=== PATIENT | female | born 1955 | race Caucasian/White ===

== ENCOUNTER 2020-01-27 20:13 | Emergency (ER) | payer OTHER ==
[2020-01-27] MEDS ORDERED: DIPHTH,PERTUSS(ACELL),TET 0.5 ML DISP.SYRIN IM ONE ×2 (20:32→20:34)
[2020-01-27 20:40] VITALS: TEMP 98.8; BMI 29.8
--- NOTE | 2020-01-27 21:12 | PDOC ---
Documentation entered by Noemy Lopez SCRIBE, acting as scribe for Warren Elizondo MD. Warren Elizondo MD: This documentation has been prepared by the charlesibe, Noemy Lopez SCRIBE, under my direction and personally reviewed by me in its entirety. I confirm that the documentation accurately reflects all work, treatment, procedures, and medical decision making performed by me. History of Present Illness - General Chief Complaint: Injury Stated Complaint: fall, left foot injury, right knee injury Time Seen by Provider: 01/27/20 20:27 History Source: Patient Exam Limitations: No Limitations - History of Present Illness Initial Comments: 01/27/20 20:47 The patient is a 65-year-old female with a past medical history significant for HTN and s/p L. hip replacement who presents to the emergency department s/p a fall. The patient reports she was on a ladder when she went to put the foot onto the kitchen top when the top flipped over causing the fall. The patient reports she landed on her left side, reports pain to her left hip, knee, foot, and 4th toe and right knee. The patient denies head injury or LOC. The patient reports she is able to ambulate and weight bear, with pain. The patient isnt sure when her last tetanus was. Review of system: General: No fevers or chills, no weakness, no weight loss HEENT: No change in vision. No sore throat,. No ear pain CardioVascular: No chest pain or shortness of breath Respiratory:No cough, or wheezing. Gastrointestinal: no nausea, vomiting, diarrhea or constipation. Genitourinary: No dysuria, hematuria, or frequency Musculoskeletal: +left hip pain, right knee pain. left foot pain. left 4th toe pain. No other joint or muscle pain or swelling Neurologic: No headache, vertigo, dizziness or loss of consciousness Psychiatric: nor depression Skin: No rashes or easy bruising Endocrine: no increased thirst or abnormal weight change Allergic: no skin or latex allergy All other systems reviewed and normal Physical exam: GENERAL: The patient is awake, alert, and fully oriented, in no acute distress. HEAD: Normal with no signs of trauma. EYES: Pupils equal, round and reactive to light, extraocular movements intact, sclera anicteric, conjunctiva clear. EXTREMITIES: Right knee: tenderness to palpation of the patella, mild swelling, abrasion to anterior patella. No ligamentous instability, neurovascularly distally intact Left hip: no bony tenderness, some soft tissue tenderness of the buttocks. Left foot/toes: There is mild bruising and tenderness to the dorsum of the foot and the base of the 4th toe. Neurovascularly intact. NEUROLOGICAL: Normal speech, normal gait. PSYCH: Normal mood, normal affect. SKIN: Warm, Dry, normal turgor, no rashes or lesions noted. 01/27/20 21:10 Assessment and plan: This is a 65-year-old female who injured her right knee left hip and right foot when she fell off of a ladder. Patient had x-rays that were done and read by me. Patient's right knee x-ray was negative for any acute pathology Patient's left foot was negative for any acute pathology Patient's left toes showed a fracture of the proximal phalanx of the fourth toe The fracture toe was rehana taped to the toe next to it patient has an open toed shoe and was discharged home told to take Tylenol or Motrin Past History - Medical History Allergies/Adverse Reactions: Allergies Allergy/AdvReac Type Severity Reaction Status Date / Time No Known Allergies Allergy Unverified 08/13/13 08:30 Home Medications: Ambulatory Orders Atenolol [Tenormin -] 50 mg PO DAILY 08/13/13 COPD: No HTN: Yes - Immunization History Immunization Up to Date: No - Psycho-Social/Smoking History Smoking History: Never smoked - Substance Abuse Hx (Audit-C & DAST Scrn) How often the patient has a drink containing alcohol: Monthly or less Number of drinks the patient has on a typical day: 1 or 2 How often the patient has six or more drinks on one occasion: Never Score: In Men: 4 or > Positive; In Women: 3 or > Positive: 1 Screen Result (Pos requires Nsg. Audit-10AR): Negative In the last yr the pt used illegal drug/Rx for NonMed reason: No Score: Yes response is considered Positive: 0 Screen Result (Positive result requires Nsg. DAST-10): Negative *Physical Exam - Vital Signs Last Vital Signs Temp Pulse Resp BP Pulse Ox 98.8 F 122 H 20 167/98 97 01/27/20 20:14 01/27/20 20:14 01/27/20 20:14 01/27/20 20:14 01/27/20 20:14 ED Treatment Course - Medications Given in the ED: ED Medications Discontinued Medications Generic Name Dose Route Start Last Admin Trade Name Elio PRN Reason Stop Dose Admin Diphtheria/Tetanus/Acell Pertussis 0.5 ml 01/27/20 20:32 01/27/20 20:38 Boostrix - IM 01/27/20 20:33 0.5 ml ONCE ONE Administration Discharge - Discharge Information Problems reviewed: Yes Clinical Impression/Diagnosis: Contusion of right knee Qualifiers: Encounter type: initial encounter Qualified Code(s): S80.01XA - Contusion of right knee, initial encounter Contusion of left foot Qualifiers: Encounter type: initial encounter Qualified Code(s): S90.32XA - Contusion of left foot, initial encounter Toe fracture, left Qualifiers: Encounter type: initial encounter Toe: unspecified toe Fracture type: closed Fracture alignment: displaced Qualified Code(s): S92.912A - Unspecified fracture of left toe(s), initial encounter for closed fracture Disposition: HOME - Admission No - Follow up/Referral - Patient Discharge Instructions Additional Instructions: Tylenol or Motrin as needed for the pain. Rehana tape your toe to the toe next to it for additional comfort. Wear open toed shoes. Return to the emergency department immediately with ANY new, persistent or worsening symptoms. Continue any medications as previously prescribed by your physician. You should follow up with your primary doctor as soon as possible regarding today's emergency department visit. . Please make sure your doctor reviews the results of your emergency evaluation. Thank you for coming to the Emergency Department today for your care. It was a pleasure to see you today. Please note that your evaluation is INCOMPLETE until you follow-up with your doctor. - Post Discharge Activity
[2020-01-27 21:18] VITALS: BP 153/94; PULSE 105
== END 2020-01-27 21:18 | disposition home or self-care (01) ==
LOC: FER 20:13 → SUPCPDRO 20:13 → FER 21:18
PROC: 3E0234Z Introduction of Serum, Toxoid and Vaccine into Muscle, Percutaneous Approach (ICD-10-PCS; principal; 2020-01-27)
DX: S80.01XA Contusion of right knee, initial encounter (principal); S90.32XA Contusion of left foot, initial encounter; S92.912A Unspecified fracture of left toe(s), initial encounter for closed fracture
CPT/HCPCS: 73562-TC-RT-FY; 73610-TC-LT-FY; 73630-TC-LT; 90715; 99284-25

== ENCOUNTER 2020-08-28 12:35 | Emergency (ER) | payer OTHER ==
[2020-08-28 12:45] VITALS: PULSE 81; TEMP 98.8; BMI 29.8
[2020-08-28 13:40] LABS: BASO % 0.5 % (0-2.0); EOS % 0.6 % (0-4.5); HEMATOCRIT 41.4 % (32.4-45.2); HEMOGLOBIN 14.2 GM/dl (10.7-15.3); LYMPH % 11.9 % (8-40); MCH 29.5 pg (25.7-33.7); MCHC 34.3 g/dl (32.0-36.0); MEAN CELL VOLUME 85.9 fl (80-96); MEAN PLT VOLUME 7.7 fl (7.5-11.1); MONO % 12.1 % (3.8-10.2); NEUT % 74.9 % (42.8-82.8); PLATELET COUNT 553 K/MM3 (134-434); RBC 4.82 M/mm3 (3.60-5.2); RDW 12.6 % (11.6-15.6); WHITE BLOOD COUNT 13.8 K/mm3 (4.0-10.8)
[2020-08-28 13:45] LABS: CREATININE 0.7 mg/dl (0.55-1.3); POTASSIUM 4.2 mmol/L (3.5-5.1)
[2020-08-28 13:46] LABS: ALBUMIN 3.6 g/dl (3.4-5.0); BILIRUBIN,TOTAL 0.7 mg/dl (0.2-1); CALCIUM 9.9 mg/dl (8.5-10); TOT PROT 7.2 g/dl (6.4-8.2)
[2020-08-28] MEDS ORDERED: MECLIZINE HCL 25 MG TABLET (FP) PO ONE (14:36)
[2020-08-28] MEDS ORDERED: LACTATED RINGERS SOLUTION 1000 ML INFUS.BAG IV ONE (14:37)
[2020-08-28] MEDS ORDERED: MECLIZINE HCL 25 MG TABLET (FP) ONE (15:00)
[2020-08-28 17:05] VITALS: BP 160/84
== END 2020-08-28 17:22 | disposition home or self-care (01) ==
LOC: FER 12:35
DX: R42 Dizziness and giddiness (principal); D32.0 Benign neoplasm of cerebral meninges
CPT/HCPCS: 36415; 70450-TC; 80053; 84484; 85025; 93005; 99284-25; C9803; U0003

== ENCOUNTER 2023-03-13 00:53 | Emergency (ER) | payer OTHER, BC ==
[2023-03-13 00:59] VITALS: BP 182/95; PULSE 95; RESP 18; TEMP 97.9; BMI 29.9
[2023-03-13 03:02] LABS: BASO % 0.3 % (0-2.0); EOS % 4.7 % (0-4.5); HEMATOCRIT 39.5 % (32.4-45.2); HEMOGLOBIN 13.5 GM/dL (10.7-15.3); MCH 29.6 pg (25.7-33.7); MCHC 34.1 g/dl (32.0-36.0); MEAN CELL VOLUME 86.7 fl (80-96); MEAN PLT VOLUME 8.9 fl (7.5-11.1); MONO % 14.4 % (3.8-10.2); NEUT % 46.6 % (42.8-82.8); RBC 4.56 M/mm3 (3.60-5.2)
[2023-03-13 04:28] LABS: POTASSIUM 3.9 mmol/L (3.5-5.1)
[2023-03-13 04:29] LABS: ALBUMIN 3.4 g/dl (3.4-5.0); BILIRUBIN,TOTAL 0.3 mg/dL (0.2-1); TOT PROT 6.9 g/dl (6.4-8.2)
[2023-03-13 04:30] LABS: BLOOD UREA NITROGEN 19.5 mg/dL (7-18)
[2023-03-13 04:31] LABS: CREATININE 0.8 mg/dL (0.55-1.3)
[2023-03-13 05:57] LABS: PLATELET COUNT 272 10^3/uL (134-434)
== END 2023-03-13 04:39 | disposition home or self-care (01) ==
LOC: FER 00:53
DX: R20.0 Anesthesia of skin (principal); M79.602 Pain in left arm
CPT/HCPCS: 36415; 80053; 84484; 85025; 93005; 99284-25